=== PATIENT | male | born 1970 | race Caucasian/White ===

== ENCOUNTER 2025-08-17 21:58 | Emergency (ER) | payer BC, SELFPAY ==
[2025-08-17 22:02] VITALS: BP 166/96
[2025-08-17 22:50] VITALS: BMI 24.4
--- NOTE | 2025-08-17 23:47 | ED.GENMED ---
History of Present Illness
General
Chief Complaint: Musculo-Skeletal Complaint
Time Seen by Provider: 08/17/25 22:57
History of Present Illness
History of Present Illness:
54-year-old male presents to the emergency department for evaluation of right elbow swelling and discoloration that began earlier this week. States when it first began he noted that the right elbow was swollen and mildly painful. It seemed to
extend into the forearm as of today. Denies fevers or chills. Denies any distal paresthesias. No trauma to the area.
Review of Systems
Review of Systems
Allergies reviewed?: Yes
All Other Systems: ROS reviewed and negative except as documented in HPI and ROS
Phy Exam
Physical Exam
Physical Exam:
GEN: Well appearing, NAD, WDWN
HEENT: Oral mucosa moist, no scleral icterus
Cardiac: Regular rate
Lung: No respiratory distress, no tachypnea
MSK: Ecchymotic appearing discoloration to the right elbow and proximal forearm, no olecranon bursal swelling, no overt erythema or warmth. Strong radial pulse. Grossly nontender to palpation with no crepitus or rigidity
Skin: Good color, no pallor or jaundice, no rashes
Neuro: AO x3, moves all extremities freely
Psych: Calm, cooperative
Course
Orders/Labs/Results
Orders:
Orders
08/17/25 23:13
CR Elbow - Right Min 3 Views Urgent
Comment:
Reason For Exam: R elbow pain
Vital Signs
Initial and Last Documented VS:
Initial Vital Signs
Temp Pulse Resp BP Pulse Ox
98.5 F 70 16 166/96 99
08/17/25 22:02 08/17/25 22:02 08/17/25 22:02 08/17/25 22:02 08/17/25 22:02
Last Documented Vital Signs
Temp Pulse Resp BP Pulse Ox
98.5 F 70 16 166/96 99
08/17/25 22:02 08/17/25 22:02 08/17/25 22:02 08/17/25 22:02 08/17/25 23:48
MDM/Problems Addressed
MDM/Problems Addressed:
The elbow appears ecchymotic as opposed to erythematous. There is no olecranon bursitis however the patient's description may suggest that noninfected bursitis was the initial issue and a rupture of the bursa may have caused the subsequent
ecchymosis. There is no clear sign of infection and he has essentially no pain and normal range of motion. X-rays independently interpreted by me are negative for fracture. Recommended close observation at home
*Pulse Oximetry
SaO2: 99
Oxygen Mode of Delivery: Room air
Patient hypoxic: no
*Critical Care Note
Total Time (30-74mins, 75-104mins- exclusive of procedures): Not Applicable
ED Attending Note
-
Portions of this chart may have been created with voice recognition software.� Occasional wrong word or��sound alike� substitutions may have occurred due to the inherent limitations of voice recognition software.
Discharge Plan
Departure
Patient Disposition: Home (Routine Discharge)
Date of Disposition: 08/17/25
Time of Disposition: 23:48
Patient with high blood pressure during this ER visit?: No
Discharge Problem:
Non traumatic right elbow ecchymosis
Instructions: Bursitis - ED (DC)
Referrals:
Ashok Xie MD [Family Provider, Internal Medicine]
Activity Restrictions/Additional Instructions:
The cause of your symptoms is not immediately clear however it does not appear to be anything infectious. Your x-rays are normal. Please observe the area over the next several days to determine if symptoms worsen and consider follow-up with your
primary doctor if symptoms change
Interventions
Interventions:
*Risk Screen - Suicide Last Done: 08/17/25 22:02
*General Assessment Last Done: 08/17/25 22:02
*Neglect/Abuse Screening Last Done: 08/17/25 22:02
*ED- Fall Risk Assessment Last Done: 08/17/25 22:02
*ED COVID-19 Vaccine History Last Done: 08/17/25 22:02
*ED Influenza Vaccine History Last Done: 08/17/25 22:02
*Nursing Disposition Last Done: 08/17/25 23:52
ED-Musculoskeletal Assessment Last Done: 08/17/25 22:51
Discharge Date and Time
Discharge Date/Time: 08/17/25 23:52
Print Language: NIUEAN
== END 2025-08-17 23:52 | disposition home or self-care (01) ==
LOC: EMR 21:58
PROVIDERS: EMERGENCY PHYSICIAN Emergency Medicine; FAMILY PHYSICIAN Internal Medicine
DX: R58 Hemorrhage, not elsewhere classified (principal); R22.31 Localized swelling, mass and lump, right upper limb
CPT/HCPCS: 99283; 73080